=== PATIENT | female | born 1955 | race Caucasian/White ===

== ENCOUNTER 2016-11-21 08:20 | Inpatient (IN) | payer OTHER ==
[2016-10-16 07:59] VITALS: BMI 32.0
--- NOTE | 2016-10-16 08:28 | PAT Medication Instructions ---
Service Date Oct 16, 2016. Current Home Medication List Atorvastatin (Lipitor), 10 MG PO HS Bupropion (Wellbutrin-Xl), 150 MG PO BID Calcium/Vitamin D (Os-Jordin 500 Plus D), Unknown Dose PO HS Estrogens, Conjugated (Premarin), 0.45 MG PO HS Lqwwwcufonm-Erlssbkikgx-Ayd C- (Glucosamine 1500 Complex), 1 TAB PO BID Melatonin-Pyridoxine (Melatonin), 5 MG PO HS Multiple Vitamins W/ Minerals (Multi For Her), 1 TAB PO HS Naproxen (Aleve), 2 TAB PO BID Omeprazole (Prilosec), 20 MG PO HS Medication Instructions For Your Scheduled Surgery - Hold the following medications 7 days prior to surgery per surgeon instructions: Herxnyevqwc-Hyubiltrwot-Dua C- (Glucosamine 1500 Complex), 1 TAB PO BID Naproxen (Aleve), 2 TAB PO BID - Take the following medications the morning of surgery with a sip of water: Bupropion (Wellbutrin-Xl), 150 MG PO BID - Take the following medications as scheduled the night before surgery: Omeprazole (Prilosec), 20 MG PO HS Multiple Vitamins W/ Minerals (Multi For Her), 1 TAB PO HS Melatonin-Pyridoxine (Melatonin), 5 MG PO HS Estrogens, Conjugated (Premarin), 0.45 MG PO HS. Calcium/Vitamin D (Os-Jordin 500 Plus D), Unknown Dose PO HS Atorvastatin (Lipitor), 10 MG PO HS Bupropion (Wellbutrin-Xl), 150 MG PO BID If you have any questions please call us at [phone] or [phone] ( [place]) or [phone]
[2016-10-16 09:22] LABS: BASO % 0.5 %; BASO ABS # 0.04 K/uL (0-0.2); COMPLETE YES; EOS % 2.6 %; HEMATOCRIT 41.4 % (37-47); IG% 0.2 %; LYMPH % 34.5 %; LYMPH ABS # 2.92 K/uL (1.2-3.4); MEAN CELL VOLUME 92.6 fL (80-100); MEAN CORPUSCULAR HEMOGLOBIN 31.3 pg (25-34); MEAN CORPUSCULAR HGB CONC 33.8 g/dl (32-36); MEAN PLATELET VOLUME 9.7 fL (7.4-10.4); MONO % 5.8 %; NEUT % 56.4 %; PLATELET COUNT 303 K/uL (130-400); RED BLOOD COUNT 4.47 M/uL (4.2-5.4); WHITE BLOOD COUNT 8.47 K/uL (4.8-10.8)
--- NOTE | 2016-10-16 09:25 | DIAGNOSTIC IMAGING REPORT ---
CHEST PREADMISSION(PA/LAT) CLINICAL HISTORY: Preoperative evaluation. COMPARISON STUDY: No previous studies for comparison. FINDINGS: Lung volumes are normal. No pneumothorax or pleural effusion is present. A lobulated hazy density along the left heart border likely reflects epicardial fat pad. Cardiac size is normal. Mediastinal contours are normal. There is no evidence of pulmonary edema. IMPRESSION: 1. No acute cardiopulmonary findings. 2. Hazy lobular density along the left heart border which likely reflects epicardial fat pad. Electronically signed by: Scooter Cisneros M.D. 10/16/2016 9:23 AM Dictated Date/Time: 10/16/2016 9:18 AM
[2016-10-16 09:36] LABS: INR 0.9 (0.9-1.1)
[2016-10-16 09:40] LABS: BUN/CREATININE RATIO 20.6 (10-20); CALCIUM 8.9 mg/dl (8.5-10.1); CREATININE 0.86 mg/dl (0.60-1.20)
--- NOTE | 2016-11-18 09:49 | HISTORY & PHYSICAL EXAMINATION ---
DATE OF ADMISSION: 11/21/2016 CHIEF COMPLAINT: Right knee pain and discomfort. 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 She has been through extensive conservative treatment with respect to her right knee including steroid shots and viscosupplementation. The pain has just gradually gotten worse. The more she stands, the more it hurts. She stands most of the day and can not do it anymore. She describes pain mostly medial, but some globally. She would like to have her knee replaced. PAST MEDICAL HISTORY: 1. Elevated cholesterol. 2. Mild obesity, BMI 32. 3. Gastroesophageal reflux disease. PAST SURGICAL HISTORY: Include total hysterectomy. ALLERGIES: SULFA. CURRENT MEDICINES: 1. Lipitor 10 mg. 2. Prilosec once a day. 3. Wellbutrin. 4. Premarin. 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 She used to work at the [employer] and then at [employer] for the past 15-20 years. She is . FAMILY HISTORY: Noncontributory. REVIEW OF SYSTEMS: Negative for diabetes, neurologic problems, vascular problems, bleeding disorders. Denies any chest pain, no shortness of breath. No history of DVT or PE. PHYSICAL EXAMINATION: GENERAL: Healthy, pleasant, middle-aged female. She looks to be in good health. HEAD, EYES, EARS, NOSE, AND THROAT EXAMINATION: Benign. NECK: Supple. No lymphadenopathy. LUNGS: Clear to auscultation. HEART: Regular rate and rhythm. ABDOMEN: Soft, nontender, nondistended. EXTREMITY EXAMINATION: Grossly neurovascularly intact except as follows: Examination of the right knee reveals the patient ambulates independently. She has a slight bit of a limp. She has varus deformity to her knee. She got bony hypertrophy medially. Range of motion 0-125. No instability. No pain with hip motion. X-RAYS: X-rays of the right knee reviewed. It shows advanced medial compartment DJD. She has complete loss of the medial joint space. She does seem to have some lateral disease with some osteophytes mostly on the medial side. She has got some patellofemoral arthritis as well. 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 She also has pretty significant patellofemoral disease. She has failed conservative treatment and would like to have her right knee replaced. PLAN: We are going to take her to the operating room and do a right total knee replacement. The risks and benefits of this procedure were explained to the patient including but not limited to DVT, PE, , infection, neurological injury, vascular injury, bleeding problem, pain, limited range of motion, stiffness, failure to relieve her symptoms, incomplete relief of symptoms, need for further surgery in the future, fracture, leg length inequality, nerve palsy, need for blood transfusion, etc. The patient understands and desires to proceed. Informed consent was obtained. As far as discharge plans, she is planning to be discharged to home. Her is going to assist in her care and she will use [facility].
[2016-11-21] VITALS (7 sets, daily range): BP systolic 105–181; BP diastolic 68–92; PULSE 64–109; TEMP 36.4–36.8; O2SAT 95–100; Ht 154.9 cm; Wt 76.6 kg
[~2016-11-21] VITALS: Ht 154.9 cm; Wt 76.6 kg
[~2016-11-21 08:20] MED LIST: ACETAMINOPHEN 500 MG TAB PO SCH; ATOR10TA88 PO; BUPIVACAINE LIPOSOME 266 MG, BUPIVACAINE/EPINEPHRINE INJ 50 ML, SODIUM CHLORIDE 0.9% PF... INFIL SCH; BUPRTAB51 PO; CALC500C70 PO; CEFAZOLIN 2000 MG/60 ML D5W 60 ML IV SCH; FAMOTIDINE 20 MG TAB PO SCH; FENTANYL CITRATE INJ 50 MCG/1 ML 2 ML VIAL ONE; GABAPENTIN 300 MG CAP PO SCH; GLUC15002 PO; LACTATED RINGER'S 1000ML 1,000 ML IV SCH; LACTATED RINGER'S 1000ML IV SCH; LACTATED RINGER'S 500 ML IV SCH; MELA1TAB22 PO; METOCLOPRAMIDE HCL 10 MG TAB PO SCH; MIDAZOLAM HCL 1 MG/ML 2ML VIAL ONE; MULT-222 PO; NAPR1TAB9 PO; PRLSR20 PO; PRM/45 PO; SCOPOLAMINE 1.5 MG TDSY TD SCH; TRANEXAMIC ACID INJ 1,000 MG in SODIUM CHLORIDE 0.9% 100ML 100 ML IV SCH
[2016-11-21] MEDS ORDERED: BUPIVACAINE 0.5 % 5 MG/1 ML PF 10ML VIAL ONE (09:00)
[2016-11-21] MEDS ORDERED: BUPIVACAINE/EPINEPHRINE 0.25% 1:200,000 30 ML VIAL ONE ×2 (09:00→10:50)
[2016-11-21] MEDS ORDERED: DEXAMETHASONE SOD INJ 4 MG/ML VIAL ONE (09:00)
[2016-11-21] MEDS ORDERED: EpHEDrine SULFATE INJ 50 MG/ML AMP IV PRN (09:15)
[2016-11-21] MEDS ORDERED: FENTANYL CITRATE INJ 50 MCG/1 ML 2 ML VIAL IV PRN (09:15)
[2016-11-21] MEDS ORDERED: PROMETHAZINE HCL INJ 6.25 MG in SODIUM CHLORIDE 0.9% 50ML 50 ML IV PRN (09:15)
[2016-11-21] MEDS ORDERED: ONDANSETRON INJ 2 MG/ML 2 ML VIAL IV PRN ×2 (09:15→12:45)
[2016-11-21] MEDS ORDERED: ATROPINE SULFATE 0.1 MG/ML 5ML SYR IV PRN (09:15)
[2016-11-21] MEDS ORDERED: SODIUM CHLORIDE 0.9% PF 50 ML VIAL ONE (10:51)
[2016-11-21] MEDS ORDERED: BUPIVACAINE LIPOSOME 1/3% 266 MG/20 ML VIAL INFIL ONE (10:51)
[2016-11-21] MEDS ORDERED: BACITRACIN 50000 UNIT VIAL ONE (10:51)
--- NOTE | 2016-11-21 10:55 | History & Physical Bridge Note ---
H&P Re-Evaluation Bridge Note: I have examined the patient, reviewed the History & Physical and in the interval since the performance of the History & Physical I have noted the following changes of clinical significance: No changes noted
[2016-11-21] MEDS ORDERED: PROPOFOL IV EMULSION 10 MG/ML 20 ML VIAL IV ONE (11:10)
[2016-11-21] MEDS ORDERED: METOPROLOL TARTRATE 1 MG/ML VIAL ONE (11:10)
--- NOTE | 2016-11-21 12:40 | [facility] Post Operative Brief Note ---
Immediate Operative Summary Operative Date Nov 21, 2016. Pre-Operative Diagnosis Right Knee Degenerative Joint Disease Post-Operative Diagnosis Right Knee Degenerative Joint Disease Procedure(s) Performed Right Total Knee Arthroplasty, Cemented Surgeon Dr. Zepeda Production Generalist Surgeon(s) Bienvenido Sandoval PA-C Estimated Blood Loss 50 ml Findings Right Knee DJD Specimens A: Right Knee Bone and Tissue Drains None Anesthesia Spinal Complication(s) None Disposition Recovery Room / PACU
[2016-11-21] MEDS ORDERED: ZOLPIDEM TARTRATE 5 MG TAB PO PRN (12:45)
[2016-11-21] MEDS ORDERED: BISACODYL 10 MG SUPP PR PRN (12:45)
[2016-11-21] MEDS ORDERED: MoRPHine SULFATE 2 MG/ML CARP IV PRN (12:45)
[2016-11-21] MEDS ORDERED: ALUMINUM/MAGNESIUM/SIMETH (MAALOX MAX) 30 ML UDC PO PRN (12:45)
[2016-11-21] MEDS ORDERED: MAGNESIUM HYDROXIDE SUSP 30 ML UDC PO PRN (12:45)
[2016-11-21] MEDS ORDERED: METOCLOPRAMIDE HCL INJ 5 MG/ML 2 ML VIAL IV PRN (12:45)
[2016-11-21] MEDS ORDERED: DiphenhydrAMINE HCL 50 MG/ML VIAL IV PRN (12:45)
--- NOTE | 2016-11-21 13:06 | Anesthesiology Progress Note ---
Anesthesia Post Op Note Date & Time Nov 21, 2016 at 13:06 Vital Signs Pain Intensity: 0 Vital Signs Past 12 Hours Date Time Temp Pulse Resp B/P Pulse Ox O2 Delivery O2 Flow Rate FiO2 11/21/16 12:50 76 16 117/74 97 Nasal Cannula 3 11/21/16 12:43 36.4 84 16 126/74 95 Nasal Cannula 3 11/21/16 08:39 36.8 109 20 181/92 Room Air Notes Mental Status: alert / awake / arousable, participated in evaluation Pt Amnestic to Procedure: Yes Nausea / Vomiting: adequately controlled Pain: adequately controlled Airway Patency, RR, SpO2: stable & adequate BP & HR: stable & adequate Hydration State: stable & adequate Neuraxial Anesthesia: was administered, sensory block is resolving Anesthetic Complications: no major complications apparent
--- NOTE | 2016-11-21 13:10 | DIAGNOSTIC IMAGING REPORT ---
RIGHT KNEE 1 OR 2 VIEWS ROUTINE CLINICAL HISTORY: AP/LATERAL IN PACU RIGHT KNEE Right postoperative evaluation COMPARISON: None. DISCUSSION: Placement of a total right knee prosthetic. Good contact between metallic prosthetic and underlying bone. Surgical drains are in position. Expected soft tissue postoperative change IMPRESSION: Anatomic alignment status post total right knee replacement Electronically signed by: Miguel Ángel An M.D. 11/21/2016 1:09 PM Dictated Date/Time: 11/21/2016 1:08 PM
--- NOTE | 2016-11-21 13:12 | OPERATIVE REPORT ---
DATE OF OPERATION: 11/21/2016 PREOPERATIVE DIAGNOSIS: Right knee degenerative joint disease. POSTOPERATIVE DIAGNOSIS: Same. PROCEDURE PERFORMED: Right cemented posterior stabilized total knee arthroplasty. SURGEON: Mynor Zepeda M.D. 1ST PRESSMAN: Bienvenido Sandoval PA-C. COMPLICATIONS: None. ESTIMATED BLOOD LOSS: 50 mL. FLUID REPLACEMENT: 800 mL crystalloid fluid replacement. ANESTHESIA: Spinal with adductor canal block. DRAINS: None. SPECIMENS: Right knee sent for pathology. 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 She has been through extensive conservative treatment including steroid shots and viscosupplementation without adequate relief. She is having difficulty performing her job which requires a lot of standing. She elected to proceed with total knee arthroplasty. OPERATIVE FINDINGS: Operative findings revealed advanced right knee DJD. She had grade 4 grsu-ef-ugoe disease in the medial femoral condyle and medial tibial plateau. She had diffuse grade 3 changes laterally as well as in the patellofemoral compartment. Some moderate size osteophytes medially. A moderate sized knee effusion. OPERATIVE IMPLANTS: Operative implants consisted of: 1. Biomet Vanguard size 60 right posterior stabilized femoral component. 2. Biomet size 63 tibial tray. 3. A 10 mm posterior stabilized polyethylene insert. 4. A 31 x 8 all poly patella. OPERATIVE PROCEDURE: The patient taken to the operating room, identified and placed on the operating table in supine position. All contact areas were appropriately padded. IV antibiotics were provided by the anesthesia team. A spinal anesthetic and adductor canal block had been provided in the holding area. Fontanez catheter was placed in sterile fashion. A right thigh tourniquet was then placed and the right lower extremity was then prepped and draped in the usual sterile fashion. The right leg was elevated and exsanguinated with Esmarch and tourniquet was placed at 300 mmHg. An anterior approach to the right knee was then performed through longitudinal incision centered over the patella. Sharp dissection was carried out through the subcutaneous tissues down to the level of the extensor mechanism. A medial parapatellar arthrotomy incision was made. Some subperiosteal dissection was carried out medially. The fat pad was resected from beneath the patellar tendon. Lateral patellofemoral ligament was released. The patella was everted and knee was flexed. The osteophytes were taken off the distal femur. The ACL and PCL were then released from the distal femur and the tibia subluxated anteriorly. The external tibial alignment jig was then placed in the anterior face of the tibia and adjusted 14 mm medially. Proximal tibial cut was made to remove about 2 mm of bone from the most deficient aspect of the medial tibial plateau. Tibia was sized to a size 63. Some osteophytes were taken off medial and posteromedially. Attention was then drawn to the femur. The distal femur was entered with a sharp drill. Intramedullary canal was suctioned. A right 5 degree valgus cutting guide was placed. Distal femoral cutting block was pinned in place. Distal femoral cut was made to take an additional 3 mm of bone off the distal femur. The femur was then sized to a size 60. We did downsize this slightly. The AP cutting block was pinned parallel to the epicondylar axis, which was 5 degrees of external rotation. The anterior cut, anterior chamfer, posterior cut, posterior chamfer cuts were made. Box cutting guide was placed and adjusted slight lateral and the box cut was made. The knee was flexed. The remnants of the medial and lateral menisci were excised. The osteophytes were taken off the posterior aspect of the femur. A trial femoral component was placed. Tibial tray was pinned in maximum external rotation and drill and stem punch were used to create defect in proximal tibia for the tibial tray. The knee was then trialed and a 10 mm insert fit most appropriately. Attention was then drawn to the patella. The patella was cleaned of all soft tissues. Patella thickness measured 18 mm and was cut down to 11. It was sized to a size 31 patella. Lug holes were drilled for a 31 patella. Lateral osteophyte was removed. Patella button was placed. Knee was taken through range of motion and patella tracked nicely with no thumbs test. Attention was then drawn toward placement of permanent components. All trial components were removed. A bone plug was placed in the distal femur to limit blood loss. A double batch of Palacos G cement was mixed. A right size 60 posterior stabilized femoral component, size 63 tibial tray, a 10 mm posterior stabilized polyethylene insert, and a 31 x 8 all poly patella then cemented in place. Knee was brought out into full extension until cement hardened. A final cement check was then performed. Pericapsular tissues were injected with a total of 100 mL of a combination of 20 mL of Exparel, 30 mL of normal saline, 50 mL of 0.25% Marcaine with epinephrine. The patient did receive 1 gram of tranexamic acid. The tourniquet was then let down for final tourniquet time of 51 minutes. Hemostasis was assured with use of electrocautery. The extensor mechanism was then closed with a combination of #1 PDS suture and #1 Vicryl suture in a [id number] fashion. Extensor mechanism was checked and found to be intact. Subcutaneous tissues were then closed with 2-0 Dexon suture in a buried interrupted fashion. Skin was closed skin greg. Leg was then cleaned and dried and a sterile dressing of Xeroform, 4 x 4, sterile cast padding and Brandin bandage were applied. The patient then transferred to the recovery room in stable condition. The patient tolerated the procedure well with no complications. All needle and sponge counts were correct at the end of the operation. I attest to the content of the Intraoperative Record and any orders documented therein. Any exceptio ns are noted below.
--- NOTE | 2016-11-21 14:19 | Anesthesiology Progress Note ---
Anesthesia Post Op Note Date & Time Nov 21, 2016 at 14:19 Vital Signs Pain Intensity: 0 Vital Signs Past 12 Hours Date Time Temp Pulse Resp B/P Pulse Ox O2 Delivery O2 Flow Rate FiO2 11/21/16 14:00 37 71 20 121/68 98 Nasal Cannula 3 11/21/16 13:50 37 70 16 134/78 98 Nasal Cannula 3 11/21/16 13:40 72 16 124/73 98 Nasal Cannula 3 11/21/16 13:30 76 16 131/78 98 Nasal Cannula 3 11/21/16 13:20 70 16 127/74 98 Nasal Cannula 3 11/21/16 13:10 70 16 121/68 98 Nasal Cannula 3 11/21/16 13:00 70 16 124/71 99 Nasal Cannula 3 11/21/16 12:50 76 16 117/74 97 Nasal Cannula 3 11/21/16 12:43 36.4 84 16 126/74 95 Nasal Cannula 3 11/21/16 08:39 36.8 109 20 181/92 Room Air Notes Mental Status: alert / awake / arousable, participated in evaluation Pt Amnestic to Procedure: Yes Nausea / Vomiting: adequately controlled Pain: adequately controlled Airway Patency, RR, SpO2: stable & adequate BP & HR: stable & adequate Hydration State: stable & adequate Neuraxial Anesthesia: was administered, sensory block is resolving Anesthetic Complications: no major complications apparent
[2016-11-21] MEDS: D5W AND 1/2NSS + 20MEQ KCL 1,000 ML IV SCH (15:04)
[2016-11-21] MEDS: CHECK SCOPOLAMINE PATCH PLACEMENT SCH (16:00)
[2016-11-21] MEDS: FERROUS GLUCONATE 324 MG TAB PO SCH (17:59)
[2016-11-21] MEDS: KETOROLAC TROMETHAMINE 30 MG/ML VIAL IV. SCH (18:00)
[2016-11-21] MEDS: CEFAZOLIN IV 1,000 MG in DEXTROSE 5% 50ML 50 ML IV SCH (18:06)
[2016-11-21] MEDS ORDERED: TRANEXAMIC ACID INJ 1,000 MG in SODIUM CHLORIDE 0.9% 100ML 100 ML IV SCH (19:00)
[2016-11-21] MEDS ORDERED: MELATONIN PYRIDOXINE 5 MG PO SCH (21:00)
[2016-11-21] MEDS: TAPENTADOL ER 50 MG TABCR PO SCH (21:29)
[2016-11-21] MEDS: DOCUSATE SODIUM 100 MG CAP PO SCH (21:29)
[2016-11-21] MEDS: BuPROPion XL 150 MG TABCR PO SCH (21:30)
[2016-11-21] MEDS: CEROVITE ADV FORMULA TAB PO SCH (21:30)
[2016-11-21] MEDS: ATORVASTATIN 10 MG TAB PO SCH (21:30)
[2016-11-21] MEDS: ASPIRIN 325 MG ECTAB PO SCH (21:31)
[2016-11-21] MEDS: PANTOprazole SOD 40 MG TAB PO SCH (21:31)
[2016-11-21] MEDS: ACETAMINOPHEN 500 MG TAB PO SCH (21:32)
[2016-11-22] VITALS (7 sets, daily range): BP systolic 118–161; BP diastolic 72–82; PULSE 65–83; TEMP 36.5–36.9; O2SAT 96–100
[2016-11-22] MEDS: D5W AND 1/2NSS + 20MEQ KCL 1,000 ML IV SCH ×2 (00:23→08:54)
[2016-11-22] MEDS: KETOROLAC TROMETHAMINE 30 MG/ML VIAL IV. SCH ×5 (00:24→23:13)
[2016-11-22] MEDS: CHECK SCOPOLAMINE PATCH PLACEMENT SCH ×4 (00:24→23:16)
[2016-11-22] MEDS: CEFAZOLIN IV 1,000 MG in DEXTROSE 5% 50ML 50 ML IV SCH (01:39)
[2016-11-22] MEDS: ACETAMINOPHEN 500 MG TAB PO SCH ×3 (06:05→21:58)
[2016-11-22 06:15] LABS: HEMATOCRIT 37.1 % (37-47); MEAN CELL VOLUME 92.8 fL (80-100); MEAN CORPUSCULAR HEMOGLOBIN 31.5 pg (25-34); MEAN PLATELET VOLUME 9.5 fL (7.4-10.4); PLATELET COUNT 288 K/uL (130-400); WHITE BLOOD COUNT 11.42 K/uL (4.8-10.8)
[2016-11-22 06:47] LABS: BUN/CREATININE RATIO 8.4 (10-20); CALCIUM 8.7 mg/dl (8.5-10.1); POTASSIUM 3.7 mmol/L (3.5-5.1)
--- NOTE | 2016-11-22 08:01 | Anesthesiology Progress Note ---
Anesthesia Post Op Note Date & Time Nov 22, 2016 at 08:00 Vital Signs Pain Intensity: 0.0 Vital Signs Past 12 Hours Date Time Temp Pulse Resp B/P Pulse Ox O2 Delivery O2 Flow Rate FiO2 11/22/16 07:53 36.7 70 16 130/80 99 Room Air 11/22/16 03:05 36.8 65 16 124/72 96 Room Air 11/22/16 00:20 Room Air 11/21/16 23:31 36.7 67 16 129/75 98 Room Air Notes Mental Status: alert / awake / arousable, participated in evaluation Pt Amnestic to Procedure: Yes Nausea / Vomiting: adequately controlled Pain: adequately controlled Airway Patency, RR, SpO2: stable & adequate BP & HR: stable & adequate Hydration State: stable & adequate Neuraxial Anesthesia: was administered, sensory block resolved Anesthetic Complications: no major complications apparent
[2016-11-22] MEDS: DOCUSATE SODIUM 100 MG CAP PO SCH ×2 (08:53→20:41)
[2016-11-22] MEDS: BuPROPion XL 150 MG TABCR PO SCH ×2 (08:53→20:40)
[2016-11-22] MEDS: FERROUS GLUCONATE 324 MG TAB PO SCH ×3 (08:53→17:48)
[2016-11-22] MEDS: ASPIRIN 325 MG ECTAB PO SCH ×2 (08:53→20:41)
[2016-11-22] MEDS: OXYCODONE HCL IR 5 MG TAB (IMMEDIATE RELEASE) PO PRN (08:56)
[2016-11-22] MEDS ORDERED: PANTOprazole SOD 40 MG TAB PO SCH (09:00)
[2016-11-22] MEDS ORDERED: MULTIVITAMIN TAB PO SCH (09:00)
[2016-11-22] MEDS: TAPENTADOL ER 50 MG TABCR PO SCH ×2 (09:02→20:41)
--- NOTE | 2016-11-22 10:29 | Anesthesiology Progress Note ---
Anesthesia Post Op Note Date & Time Nov 22, 2016 at 10:29 Vital Signs Vital Signs Past 12 Hours Date Time Temp Pulse Resp B/P Pulse Ox O2 Delivery O2 Flow Rate FiO2 11/22/16 09:27 98 Room Air 11/22/16 08:26 Room Air 11/22/16 07:53 36.7 70 16 130/80 99 Room Air 11/22/16 03:05 36.8 65 16 124/72 96 Room Air 11/22/16 00:20 Room Air 11/21/16 23:31 36.7 67 16 129/75 98 Room Air Notes Mental Status: alert / awake / arousable, participated in evaluation Pt Amnestic to Procedure: Yes Nausea / Vomiting: adequately controlled Pain: adequately controlled Airway Patency, RR, SpO2: stable & adequate BP & HR: stable & adequate Hydration State: stable & adequate Neuraxial Anesthesia: sensory block resolved Anesthetic Complications: no major complications apparent
--- NOTE | 2016-11-22 15:16 | PROGRESS NOTE ---
DATE: 11/22/2016 DATE: 11/22/2016. SUBJECTIVE: A 61-year-old female postop day 1 from right knee replacement. She is doing well. Pain has been controlled. Therapy went in reasonably well. No chest pain or shortness of breath. Not feeling dizzy or lightheaded. OBJECTIVE: VITAL SIGNS: Temperature 36.6. Vital signs stable. PHYSICAL EXAMINATION: GENERAL: Reveals a healthy pleasant, middle-aged female. She is sitting up in her bedside chair eating lunch when I visited with her today. LUNGS: Clear to auscultation. HEART: Regular rate and rhythm. ABDOMEN: Soft, nontender, nondistended. EXTREMITY EXAMINATION: Grossly neurovascularly intact except as follows: Examination of the right lower extremity reveals the dressing to be clean, dry and intact. She can dorsiflex and plantarflex her foot appropriately. She is neurologically intact. LABORATORY DATA: Hemoglobin 12.6. Hematocrit 37.1. Electrolytes are stable. ASSESSMENT: A 61-year-old female postop day 1 from right knee replacement, doing pretty well. Pain is controlled. She is neurologically intact. PLAN: 1. DVT prophylaxis including thigh-high TEDs, SCDs, and aspirin twice a day. 2. PT/OT. Weightbearing as tolerated. Right total knee protocol. 3. Pain control, doing pretty well with current pain regimen. 4. Disposition: Plan to discharge to home. She is going to do outpatient therapy. She does not want home health as she has got multiple dogs. We will see how therapy goes tomorrow as far as discharge plans.
[2016-11-22] MEDS: ATORVASTATIN 10 MG TAB PO SCH (20:41)
[2016-11-22] MEDS: PANTOprazole SOD 40 MG TAB PO SCH (20:41)
[2016-11-22] MEDS: CEROVITE ADV FORMULA TAB PO SCH (20:41)
[2016-11-22] MEDS ORDERED: MORP15TA19 PO (22:08)
[2016-11-22] MEDS ORDERED: ACET-1138 PO (22:08)
[2016-11-22] MEDS ORDERED: RXC5 PO (22:08)
[2016-11-22] MEDS ORDERED: ASPEC325 PO (22:08)
--- NOTE | 2016-11-22 22:11 | Discharge Instructions ---
Discharge Instructions Date of Service Nov 22, 2016. Admission Reason for Admission: Right Knee Degenerative Joint Disease Discharge Discharge Diagnosis / Problem: Right Knee Replacement Discharge Goals Goal(s): Decrease discomfort, Improve function, Increase independence, Improve disease control, Therapeutic intervention Activity Recommendations Activity Limitations: per Instructions/Follow-up section Weightbearing Status: Right weightbearing . Instructions / Follow-Up Instructions / Follow-Up ACTIVITY RECOMMENDATIONS: Physical Therapy: * You will go to physical therapy three times each week for four to six weeks after your surgery in order to regain your knee range of motion and to retrain your knee to work properly. * It is just as important to make sure you are getting your knee perfectly straight as it is to regain your knee bend. * Taking a pain pill an hour before therapy can help you have a more productive and comfortable therapy session. Home Exercise: * You were shown a series of exercises (heel props, heel slides, etc.) in the hospital. Do these exercises three to four times each day including the exercises you were shown in physical therapy. Walking: * Get up and walk several times each day. For the first four weeks, try not to stand or walk for more than one hour at a time. If you do stand or walk for more than one hour, you will not hurt anything, but your knee and leg will likely swell. * As you feel comfortable, you may change from the walker or crutches to a cane and then to independent walking. MEDICATIONS: New Medicine: * You will likely be taking one or more of these medications: 1. MS Contin - A long-acting pain medication. Take 1 tablet twice a day for the first ten days to decrease your baseline level of pain. 2. Oxycodone - A quick and shorter-acting pain medication. Take one to two tablets every four to six hours to lessen your pain. 3. Aspirin - Thins your blood to lessen the chance of forming a blood clot. * The most common side effects of pain medicine and iron are nausea and constipation. If nausea or constipation is too much of a problem or if you have any questions about your new medicines or doses, call [facility] at [phone]. We will try to help you manage these issues. VERY IMPORTANT TO READ AND REVIEW" Pain: * The immediate post-operative period after knee replacement surgery is often quite painful. * You are given a prescription for pain medicine. You should take it, as directed, when you need it, especially before physical therapy and before going to bed. Pain that interferes with sleep is very common and can last several months. * You will likely need pain medicine for the first four to six weeks. It will not stop all of the pain. The pain will lessen and as you feel better, you may change to milder pain medicine such as Tylenol. * The most common side effects of pain medicine are nausea and constipation, so don't take more than you need. SPECIAL CARE INSTRUCTIONS: TEDs/Elastic Stockings: * The white elastic stockings help limit swelling and prevent blood clots from forming in your legs. The more you wear them, the more they work. * Wear them for six weeks after knee replacement surgery and four weeks after partial knee replacement. Prevention of Infection: * Take antibiotics one hour before any dental cleaning, dental work, urological procedure, gastrointestinal procedure or any invasive surgery in order to prevent your new joint from getting infected. * You may get the antibiotics from the doctor performing the procedure or you may call our office at before and we will call in a prescription to the pharmacy of your choice. Things to Watch For: * Drainage from the incision site that occurs more than one week after your surgery. * Severely increased knee/leg pain or swelling. * Increased redness at the incision site. * Fever above 102 degrees Fahrenheit. * Unusual chest pain or shortness of breath. * Unusual pain or burning with urination. Call [facility] at with any of the above problems or if you have any questions about your medicines or recovery. FOLLOW UP VISIT: Make an appointment to see your doctor for approximately two weeks after surgery for a progress check and staple removal by calling the office at . Current Hospital Diet Patient's current hospital diet: Regular Diet Discharge Diet Recommended Diet: Regular Diet Procedures Procedures Performed: Right Total Knee Arthroplasty, Cemented Pending Studies Studies pending at discharge: no Medical Emergencies . Who to Call and When: Medical Emergencies: If at any time you feel your situation is an emergency, please call [phone] immediately. . Non-Emergent Contact Non-Emergency issues call your: Surgeon . "Provider Documentation" section prepared by Mynor Zepeda. VTE Core Measure Inpt VTE Proph given/why not?: Other Anticoagulation, T.E.D. Stockings, SCD's
[2016-11-23] MEDS: ACETAMINOPHEN 500 MG TAB PO SCH (05:42)
[2016-11-23] MEDS: KETOROLAC TROMETHAMINE 30 MG/ML VIAL IV. SCH (06:00)
[2016-11-23 06:06] VITALS: BP 148/83; PULSE 79; TEMP 37; O2SAT 98
--- NOTE | 2016-11-23 07:48 | PROGRESS NOTE ---
DATE: 11/23/2016 SUBJECTIVE: 61-year-old female postop day 2 from right knee replacement. She is doing pretty well. Knee is pretty sore. No chest pain or shortness of breath. Not feeling dizzy or lightheaded. OBJECTIVE: VITAL SIGNS: Temperature 37.0. Vital signs stable. PHYSICAL EXAMINATION: GENERAL: Reveals a healthy, pleasant middle-aged female. She is sitting up at her bedside eating breakfast. She looks comfortable. EXTREMITIES: Examination of the right leg reveals the dressing to be clean, dry and intact. Fairly minimal swelling. She can dorsiflex and plantarflex her foot appropriately. She is neurologically intact. ASSESSMENT: 61-year-old female postop day 2 from right knee replacement, doing pretty well. PLAN: 1. DVT prophylaxis including thigh-high TEDs, SCDs, and aspirin twice a day. 2. PT/OT. Weightbearing as tolerated. Right total knee protocol. 3. Pain control. Doing reasonably well with current pain regimen. 4. Plan to discharge to home and she is going to do outpatient therapy after therapy today.
[2016-11-23] MEDS: FERROUS GLUCONATE 324 MG TAB PO SCH (08:18)
[2016-11-23] MEDS: OXYCODONE HCL IR 5 MG TAB (IMMEDIATE RELEASE) PO PRN (08:18)
[2016-11-23] MEDS: TAPENTADOL ER 50 MG TABCR PO SCH (08:18)
[2016-11-23] MEDS: BuPROPion XL 150 MG TABCR PO SCH (08:19)
[2016-11-23] MEDS: ASPIRIN 325 MG ECTAB PO SCH (08:49)
[2016-11-23] MEDS: DOCUSATE SODIUM 100 MG CAP PO SCH (08:49)
[2016-11-23 10:00] VITALS: BP 108/75; PULSE 71; O2SAT 100
[2016-11-23 10:22] VITALS: BP 148/83; PULSE 79; TEMP 37; O2SAT 98
--- NOTE | 2016-12-01 16:50 | DISCHARGE SUMMARY ---
ADMITTING PHYSICIAN AND SURGEON: Mynor Zepeda MD ADMITTING DIAGNOSIS: Right knee degenerative joint disease. SURGERY PERFORMED: Right total knee arthroplasty. SECONDARY DIAGNOSES: Elevated cholesterol, mild obesity, gastroesophageal reflux disease. CONSULTS: None obtained. HISTORY AND PHYSICAL EXAMINATION: Well documented in patient's chart. HOSPITAL COURSE: The patient was admitted on 11/21/2016 and underwent total knee arthroplasty, tolerated the procedure well. There were no complications. She was transferred to the PACU postoperatively and later to the orthopedic floor for further care. She was given Ancef for antibiotic prophylaxis, SPENCER stockings, SCDs and aspirin for DVT prophylaxis. Hemoglobin, hematocrit and vital signs were monitored and remained stable. She did not require any blood transfusions. There were no complications. By postoperative day 2, she was tolerating a general diet, pain was controlled with oral pain medicine. She was participating in physical therapy and had no signs or symptoms of deep vein thrombosis. On postoperative day 2, she was discharged home in good condition. She was given printed discharge instructions including prescriptions for extra strength Tylenol, aspirin 325 mg b.i.d., MS Contin and oxycodone. Continue her home medications, continue physical therapy, weightbearing as tolerated and SPENCER stockings. Follow up in 10-12 days or sooner if there are problems or concerns.
== END 2016-11-23 11:23 | disposition home or self-care (01) | DRG 470 ==
LOC: ENRESERVDT → ENRESERVTM → C.ACU 08:20 → C.3E 12:44
PROVIDERS: ADMIT Orthopaedic Surgery Sports Medicine; ATTEND Orthopaedic Surgery Sports Medicine
PROC: 0SRC0J9 Replacement of Right Knee Joint with Synthetic Substitute, Cemented, Open Approach (ICD-10-PCS; principal; 2016-11-21 11:00)
DX: M17.11 Unilateral primary osteoarthritis, right knee (principal); M21.161 Varus deformity, not elsewhere classified, right knee; M25.461 Effusion, right knee; E78.00 Pure hypercholesterolemia, unspecified; K21.9 Gastro-esophageal reflux disease without esophagitis; F32.9 Major depressive disorder, single episode, unspecified; E66.9 Obesity, unspecified; Z68.32 Body mass index [BMI] 32.0-32.9, adult; Z79.890 Hormone replacement therapy; Z79.899 Other long term (current) drug therapy